=== PATIENT | female | born 1960 | race Caucasian/White ===

== ENCOUNTER 2018-03-29 15:23 | Outpatient (CLI) | payer OTHER ==
--- NOTE | 2018-03-29 17:31 | BD ---
DEXA BONE DENSITY STUDY: Date: 03/29/18 COMPARISON: None. HISTORY: 58-year-old postmenopausal female for screening for osteoporosis. FINDINGS: Lumbar Spine: BMD (g/cm2) L1 1.100 T-Score: 1.0 L2 1.298 T-Score: 2.5 L3 1.382 T-Score: 2.7 L4 1.203 T-Score: 1.3 L1-L4 1.250 T-Score: 1.8 Femoral Neck: 0.947 T-Score: 0.9 Total Femur: 1.130 T-Score: 1.5 IMPRESSION: Normal bone mineral density. POS: [facility]WASI
== END 2018-03-29 15:24 | disposition home or self-care (01) ==
LOC: BICMAMMO 15:23
PROVIDERS: ATTEND Family Medicine
DX: Z13.820 Encounter for screening for osteoporosis (principal)
CPT/HCPCS: 77080

== ENCOUNTER 2018-09-19 12:44 | Outpatient (CLI) | payer OTHER ==
--- NOTE | 2018-09-19 14:18 | MRI ---
Cervical spine MRI without contrast: 09/19/2018 COMPARISON: None HISTORY: Neck pain with right upper extremity radiculopathy TECHNIQUE: Multiplanar multisequence MR imaging of the cervical spine obtained without contrast. FINDINGS: The sagittal STIR imaging demonstrates no focal area of osseous marrow edema. No anterolisthesis or retrolisthesis is seen within the cervical spine. C2-3: Mild left facet hypertrophy. No central canal or neural foraminal stenosis. C3-4: Left facet and uncovertebral osteophyte formation with mild left neural foraminal stenosis. No significant central canal or right neural foraminal stenosis. C4-5: Moderate facet and uncovertebral osteophyte formation on the left. No significant central canal or neural foraminal stenosis. C5-6: There is disc space narrowing and disc desiccation with disc bulge. There is a superimposed sma ll right paracentral disc protrusion. There is mild central canal stenosis with a moderate degree of central canal stenosis seen laterally on the right abutting the ventral aspect of the cord with mi nimal cord flattening. Bilateral facet and uncovertebral osteophyte formation noted with mild neural foraminal stenosis, right greater than left. C6-7: There is disc space narrowing and disc desiccation with disc bulge present. There is an annular tear in the left paracentral region with a disc protrusion causing moderate central canal stenosis laterally on the left, abutting the ventral aspect of the cord with mild left-sided cord flattening. Facet and uncovertebral osteophyte formation as well as disc bulge causes moderate bilateral neural foraminal stenosis, left greater than right. C7-T1: Mild disc bulge with no central canal stenosis. Mild bilateral facet hypertrophy, left greater than right. No significant neural foraminal stenosis. No focal area of abnormal signal intensity identified within the cervical cord IMPRESSION: Significant degenerative disc disease noted at C5-C6 and C6-C7 as detailed above. Transcribed Date/Time: 09/19/2018 2:25 PM
== END 2018-09-19 12:45 | disposition home or self-care (01) ==
LOC: SCSMRI 12:44
PROVIDERS: ATTEND Psychiatry & Neurology Neurology
DX: M50.122 Cervical disc disorder at C5-C6 level with radiculopathy (principal); G50.0 Trigeminal neuralgia
CPT/HCPCS: 72141

== ENCOUNTER 2018-10-18 13:08 | Outpatient (CLI) | payer OTHER ==
[~2018-10-18 13:08] MED LIST: Gadobenate Dimeglumine 529 MG/1 ML (20ML VIAL) ONE
--- NOTE | 2018-10-18 16:41 | MRI ---
MRI BRAIN WITH AND WITHOUT CONTRAST: (Cranial nerve protocol) DATE: 10/18/2018 HISTORY: 58-year-old female with ICD-10: R 51, new onset of headaches after age 49" Patient states that the ordering physician has concern for trigeminal neuralgia. TECHNIQUE: Multiplanar, multisequence MRI of the brain obtained pre and post IV injection of gadolinium based co ntrast agent, both whole brain sequences, plus thin slices through. Cranial nerves. FINDINGS: The ventricles are normal in size and configuration. There is no midline shift or any other evidence of mass effect. There is no extra-axial fluid collection. There is no intra-axial signal abnormality, abnormal enhancement, mass, recent hemorrhage, or restricted diffusion. There is no abno rmal enhancement or mass involving the cisternal segments of the bilateral trigeminal nerves. A tiny blood vessel abuts the right lateral surface of the peng, very close to the root entry zone of t he right (fifth cranial) trigeminal nerve. This could potentially cause a right-sided trigeminal neuralgia, although that is doubtful, since the patient reports left-sided pain greater than right. N o abnormality of the cavernous sinuses or Meckel's caves. Orbital apices and the orbits are clear. The clivus has normal bone marrow signal. IMPRESSION: 1) tiny blood vessel abuts the right surface of the peng very close to the root entry zone of the rig ht trigeminal nerve. It is possible that this is causing right trigeminal neuralgia, but doubtful. Clinical correlation is recommended. 2) otherwise normal.
== END 2018-10-18 13:09 | disposition home or self-care (01) ==
LOC: SCSMRI 13:08
PROVIDERS: ATTEND Psychiatry & Neurology Neurology
DX: R51 Headache (principal)
CPT/HCPCS: 70553; A9577

== ENCOUNTER 2019-02-14 10:21 | Outpatient (CLI) | payer OTHER ==
[2019-02-14 15:41] LABS: Anion Gap 15 mmol/L (10-20); BUN (Urea Nitrogen) 11 mg/dL (9.8-20.1); Calc. Creatinine Clearance 0 mL/min (70-130); Calcium 9.5 mg/dL (7.8-10.44); Carbon Dioxide 24 mmol/L (22-29); Chloride 103 mmol/L (98-107); Estimated GFR-MDRD 81; Glucose 93 mg/dL (70-105); Potassium 4.1 mmol/L (3.5-5.1); Sodium 138 mmol/L (136-145)
== END 2019-02-14 10:22 | disposition home or self-care (01) ==
LOC: LABBT 10:21
PROVIDERS: ATTEND Neurological Surgery
DX: Z01.818 Encounter for other preprocedural examination (principal); M54.12 Radiculopathy, cervical region
CPT/HCPCS: 80048; 93005; 93010

== ENCOUNTER 2019-02-21 05:38 | Day surgery (SDC) | payer OTHER ==
[2019-02-14 14:04] VITALS: BMI 34.0
--- NOTE | 2019-02-20 14:11 | HP ---
HISTORY OF PRESENT ILLNESS: Ms. Joseph is a pleasant 59-year-old woman, here today to discuss roughly 1 year worth of severe posterior neck pain associated with right upper extremity pain that very will fit to C7 with some components of C6 radiculopathy. She had a fall at home and then roughly 3 days later, her pain started up, associated with the neck and right upper extremity. She also has some chest wall pain, this very well could be associated with this as well. In addition, she has bilateral occipital neuralgia. She has attempted three epidural steroid injections, which helped with the chest wall pain, but the arm and neck not as much. Turning her head and riding in the car seemed to set her pain off rather significantly. MRI from [facility] reveals severe bilateral neuroforaminal narrowing secondary to disk osteophyte complex at C5-7, which fit her symptoms well. PHYSICAL EXAMINATION: The patient is alert and oriented x3. Gait is normal. No ataxia. Upper extremity motor exam is normal. She has mild posterior tenderness to palpation around the cervical paraspinous musculature. Posture, right Spurling's maneuver. PAST MEDICAL HISTORY: Significant for epilepsy, hypercholesterolemia, depression, arthritis, seasonal allergies, breast cancer, and hypothyroidism. CURRENT MEDICATIONS: 1. Enbrel. 2. Methotrexate. 3. Plaquenil. 4. Folate. 5. Cymbalta. 6. Prednisone. 7. Carbamazepine. 8. Neurontin. 9. Flexeril. 10. Synthroid. 11. Tramadol. 12. Atenolol. 13. Triamterene/hydrochlorothiazide. ALLERGIES: STATIN MEDICATIONS. PAST SURGICAL HISTORY: Tonsillectomy and adenoidectomy, tympanoplasty, tubal ligation, hysterectomy, bladder sling, hemorrhoidectomy, bilateral mastectomies, and breast reconstruction. ASSESSMENT: Cervical radiculopathy. PLAN: Dr. Donato met with the patient, reviewed imaging and advocated for C5-C7 ACDF. He explained to the patient the risks, benefits, and alternatives to the procedure. The patient expressed understanding and elected to move forward with surgery as discussed. I do believe the patient is mentally competent and capable of making medical decisions for herself. We will move forward with surgery as planned. Job ID: [id number]
[2019-02-21] MEDS ORDERED: HYDROmorphone 0.5 MG/0.5 ML SYRINGE ONE (06:07)
[2019-02-21] MEDS ORDERED: Lidocaine 2% Jelly 5 ML TUBE ONE (06:07)
[2019-02-21] MEDS ORDERED: Fentanyl 100 MCG/2 ML VIAL ONE ×4 (06:07→10:28)
[2019-02-21] MEDS ORDERED: Midazolam HCl 2 mg/2 ml Vial ONE (06:07)
[2019-02-21] MEDS ORDERED: Thrombin 5000 UNITS/5 ML VIAL ONE (06:15)
[2019-02-21] MEDS ORDERED: Ondansetron PF 4 MG/2 ML Vial ONE (06:40)
--- NOTE | 2019-02-21 09:46 | OP ---
DATE OF PROCEDURE: 02/21/2019 HEALTHCARE MANAGEMENT CONSULTANT: Wesley Rene PA-C INDICATION: Pain. DIAGNOSIS: Cervical radiculopathy. PROCEDURE PERFORMED: Anterior cervical diskectomy and fusion, C5 through C7. ANESTHESIA: General. DESCRIPTION OF PROCEDURE: The patient was brought into the operating room and placed under general anesthesia. She was placed on table in a supine position. A transverse incision was planned over the lateral aspect of the neck on the right. After prepping and draping and after an appropriate operative pause, the incision was created. The platysma muscle was identified and incised. A blunt tissue plane anterior to the sternocleidomastoid muscle was used to gain access to the prevertebral space. Self-retaining retractors were placed. After confirming the appropriate level with C-arm fluoroscopy, an annulotomy was performed of the C6-7 and C5-6 disk spaces. All disk material as well as anterior and posterior osteophytes were removed. After decompressing both segments, interbody grafts were placed, a 6 mm lordotic PEEK cage packed with allograft and autograft material was placed at C6-C7 and an 8 mm placed at C5-C6. An anterior cervical plate was then fashioned to the front of spine and secured with 6 screws. Midline and lateral structures were inspected and found to be free from significant trauma. The wound was irrigated. Hemostasis was maintained throughout. The wound was then closed in anatomic layers and a pressure dressing was applied. There were no known procedural complications. Job ID: [id number]
[2019-02-21] MEDS ORDERED: Cyclobenzaprine 10 MG TAB ONE (10:08)
[2019-02-21] MEDS ORDERED: Acetaminophen/Codeine 30-300mg Tablet ONE (11:03)
== END 2019-02-21 12:30 | disposition home or self-care (01) ==
LOC: SDC 05:38
PROVIDERS: ATTEND Neurological Surgery
PROC: 0RG20A0 Fusion of 2 or more Cervical Vertebral Joints with Interbody Fusion Device, Anterior Approach, Anterior Column, Open Approach (ICD-10-PCS; principal; 2019-02-21)
PROC: 0RT30ZZ Resection of Cervical Vertebral Disc, Open Approach (ICD-10-PCS; principal; 2019-02-21)
PROC: 0RG2070 Fusion of 2 or more Cervical Vertebral Joints with Autologous Tissue Substitute, Anterior Approach, Anterior Column, Open Approach (ICD-10-PCS; principal; 2019-02-21)
DX: M54.12 Radiculopathy, cervical region (principal); E03.9 Hypothyroidism, unspecified; E78.00 Pure hypercholesterolemia, unspecified; F32.9 Major depressive disorder, single episode, unspecified; M19.90 Unspecified osteoarthritis, unspecified site; Z79.899 Other long term (current) drug therapy; Z88.8 Allergy status to other drugs, medicaments and biological substances
CPT/HCPCS: 76000; C1713; C1776; J0690; J1170; J2250; J2405; J3010